=== PATIENT | female | born 1965 | race Caucasian/White ===

== ENCOUNTER 2017-04-18 06:50 | Emergency (ER) | payer BC ==
[~2017-04-18] VITALS: Ht 170.2 cm; Wt 60.0 kg
[~2017-04-18 06:50] MED LIST: ALBU6.7H INH; ASPI-515 PO; FLUT1DIS3 INH; GUAI237S4 PO; LINE600T37 PO; MONT10TA6 NG; PRED20TA PO; SIMV20TA PO
[2017-04-18] MEDS ORDERED: KETOROLAC 30 MG/1 ML ONE (07:05)
[2017-04-18] MEDS ORDERED: HYDROmorphone 1 MG/ML, 1ML ONE ×2 (07:05→08:10)
[2017-04-18] MEDS ORDERED: ONDANSETRON 2MG/ML, 2ML ONE (07:06)
[2017-04-18] MEDS: HYDROmorphone 1 MG/ML, 1ML IVPush PRN ×2 (07:12→08:20)
[2017-04-18 07:23] LABS: HEMATOCRIT 45.5 % (34.6-47.8); HEMOGLOBIN 15.8 g/dL (11.7-16.4); WHITE BLOOD COUNT 16.6 x10^3/uL (3.4-10)
[2017-04-18] MEDS ORDERED: SODIUM CHLORIDE FLUSH 10ML SYR IVF ONE (07:30)
[2017-04-18] MEDS ORDERED: ONDANSETRON 2MG/ML, 2ML IVPush ONE (07:30)
[2017-04-18] MEDS ORDERED: KETOROLAC 30 MG/1 ML IVPush ONE (07:30)
[2017-04-18 07:34] LABS: BLOOD UREA NITROGEN 18 mg/dL (7-18)
[2017-04-18 09:10] VITALS: BP 135/68
== END 2017-04-18 09:11 | disposition home or self-care (01) ==
LOC: ED 08:55
DX: N20.1 Calculus of ureter (principal); J45.909 Unspecified asthma, uncomplicated
CPT/HCPCS: 36415; 74176; 80048; 81001; 82040; 85025; 87077; 87086; 87186; 96374; 96375; 96376; 99285; J1170; J1885; J2405

== ENCOUNTER 2017-04-24 10:46 | Inpatient (IN) | payer BC ==
[~2017-04-24] VITALS: Ht 170.2 cm; Wt 68.1 kg
[2017-04-24] MEDS ORDERED: SODIUM CHLORIDE FLUSH 10ML SYR IVF ONE (11:30)
[2017-04-24] MEDS ORDERED: ONDANSETRON 2MG/ML, 2ML IVPush ONE (11:30)
[2017-04-24] MEDS ORDERED: SODIUM CHLORIDE 0.9% 1,000ML IVBOLUS ONE (11:30)
[2017-04-24 11:55] LABS: BLOOD UREA NITROGEN 33 mg/dL (7-18)
[2017-04-24] MEDS ORDERED: KETOROLAC 30 MG/1 ML ONE (11:56)
[2017-04-24] MEDS ORDERED: ONDANSETRON 2MG/ML, 2ML ONE (11:57)
[2017-04-24] MEDS ORDERED: KETOROLAC 30 MG/1 ML IVPush ONE (12:00)
[2017-04-24 12:05] LABS: HEMATOCRIT 38.8 % (34.6-47.8); HEMOGLOBIN 13.5 g/dL (11.7-16.4); WHITE BLOOD COUNT 15.9 x10^3/uL (3.4-10)
[2017-04-24 12:07] LABS: DIFF TOTAL CELLS COUNTED 100 CELL DIFF
[2017-04-24 12:10] LABS: VERIFY COUNTS? YES
[2017-04-24 12:11] LABS: LARGE PLATELETS 1+
[2017-04-24] MEDS ORDERED: SODIUM CHLORIDE 0.9%, 500ML IVBOLUS ONE (13:30)
[2017-04-24] MEDS ORDERED: PIPERACILLIN/TAZO/PMX 3.375GM 50 ML IV ONE (13:30)
[2017-04-24] MEDS ORDERED: PIPERACILLIN/TAZO/PMX 3.375GM 50 ML ONE (13:37)
[2017-04-24] MEDS ORDERED: HYDROcodone/APAP 5/325 TABLET ONE (13:46)
[2017-04-24] MEDS ORDERED: HYDROcodone/APAP 5/325 TABLET PO PRN (14:00)
[2017-04-24] MEDS ORDERED: BISACODYL 10 MG SUPP PR PRN (14:00)
[2017-04-24] MEDS ORDERED: morphine SULFATE 10 MG/ML, 1ML IVPush PRN (14:00)
[2017-04-24] MEDS ORDERED: HYDROcodone/APAP 5/325 TABLET PO ONE (14:00)
[2017-04-24] MEDS ORDERED: ACETAMINOPHEN 325 MG TABLET PO PRN (14:00)
[2017-04-24] MEDS ORDERED: ENALAPRILAT 1.25 MG/ML, 2ML IVPush PRN (14:00)
[2017-04-24] MEDS ORDERED: ONDANSETRON ODT 4 MG PO PRN (14:00)
[2017-04-24] MEDS ORDERED: BUDE10.2 INH (16:52)
[2017-04-24] MEDS: NS + 20MEQ KCL 1,000 ML IV SCH (19:39)
[2017-04-24 20:16] VITALS: BP 130/78
[2017-04-24] MEDS: MONTELUKAST 10 MG TABLET PO SCH (22:52)
[2017-04-24] MEDS: DOCUSATE 100 MG CAPSULE PO PRN (23:31)
[2017-04-25 00:47] VITALS: BP 121/70
[2017-04-25] MEDS: NS + 20MEQ KCL 1,000 ML IV SCH ×2 (04:52→17:59)
[2017-04-25 05:47] LABS: BLOOD UREA NITROGEN 27 mg/dL (7-18)
[2017-04-25 06:28] LABS: HEMATOCRIT 34.4 % (34.6-47.8); HEMOGLOBIN 11.7 g/dL (11.7-16.4); WHITE BLOOD COUNT 13.8 x10^3/uL (3.4-10)
[2017-04-25] MEDS: FLUTICASONE/VILANTEROL 100-25MCG/INH INH SCH (07:46)
[2017-04-25] MEDS: SENNA/DOCUSATE TABLET PO SCH (07:50)
[2017-04-25 08:59] VITALS: BP 131/77
[2017-04-25] MEDS: LEVOFLOXACIN/PMX 750MG/150ML 150 ML IV SCH (10:52)
[2017-04-25 12:45] VITALS: BP 139/86
[2017-04-25] MEDS: ONDANSETRON 2MG/ML, 2ML IVPush PRN ×2 (12:51→19:49)
[2017-04-25 19:08] VITALS: BP 143/73
[2017-04-25] MEDS: DOCUSATE 100 MG CAPSULE PO PRN (19:49)
[2017-04-25] MEDS: MONTELUKAST 10 MG TABLET PO SCH (19:49)
[2017-04-26 00:23] VITALS: BP 154/78
[2017-04-26] MEDS: NS + 20MEQ KCL 1,000 ML IV SCH ×2 (04:09→13:41)
[2017-04-26 06:02] LABS: HEMATOCRIT 35.2 % (34.6-47.8); HEMOGLOBIN 12.1 g/dL (11.7-16.4); WHITE BLOOD COUNT 14.1 x10^3/uL (3.4-10)
[2017-04-26 06:16] LABS: BLOOD UREA NITROGEN 15 mg/dL (7-18)
[2017-04-26 08:00] VITALS: BP 152/79
[2017-04-26] MEDS: SENNA/DOCUSATE TABLET PO SCH (08:47)
[2017-04-26] MEDS: FLUTICASONE/VILANTEROL 100-25MCG/INH INH SCH (08:47)
[2017-04-26 13:38] VITALS: BP 144/75
[2017-04-26 13:45] VITALS: BP 144/75
[2017-04-26 19:04] VITALS: BP 150/79
[2017-04-26] MEDS: ONDANSETRON 2MG/ML, 2ML IVPush PRN (20:04)
[2017-04-26] MEDS: MONTELUKAST 10 MG TABLET PO SCH (23:16)
[2017-04-27 00:51] VITALS: BP 141/72
[2017-04-27] MEDS: NS + 20MEQ KCL 1,000 ML IV SCH ×2 (00:58→10:28)
[2017-04-27 05:28] LABS: BLOOD UREA NITROGEN 15 mg/dL (7-18)
[2017-04-27 05:32] LABS: HEMATOCRIT 34.5 % (34.6-47.8); WHITE BLOOD COUNT 12.3 x10^3/uL (3.4-10)
[2017-04-27 07:25] VITALS: BP 142/77
[2017-04-27] MEDS ORDERED: LEVO500T47 PO (07:42)
[2017-04-27] MEDS ORDERED: AMLO2.5T2 PO (07:42)
[2017-04-27] MEDS: FLUTICASONE/VILANTEROL 100-25MCG/INH INH SCH (09:00)
[2017-04-27] MEDS: SENNA/DOCUSATE TABLET PO SCH (09:00)
[2017-04-27 09:23] LABS: PATH.CAST-FLAG NOT PRESENT; SPERM-FLAG NOT PRESENT; XTAL-FLAG NOT PRESENT; YLC-FLAG NOT PRESENT
[2017-04-27 09:34] LABS: SRC-FLAG NOT PRESENT
[2017-04-27] MEDS: LEVOFLOXACIN/PMX 750MG/150ML 150 ML IV SCH (10:26)
[2017-04-27 11:02] LABS: RAPID INFLUENZA A Negative (Negative); RAPID INFLUENZA B Negative (Negative)
[2017-04-27 12:54] VITALS: BP 144/86
== END 2017-04-27 14:15 | disposition home or self-care (01) | DRG 690 ==
LOC: ED 13:09 → INTOOBSV 13:42 → EDIP 13:42 → 4NOR 18:19 → OBSVTOIN 04-26 09:06
PROVIDERS: ADMIT Hospitalist; ATTEND Hospitalist
DX: N12 Tubulo-interstitial nephritis, not specified as acute or chronic (principal); N17.9 Acute kidney failure, unspecified; E86.0 Dehydration; E87.6 Hypokalemia; F17.210 Nicotine dependence, cigarettes, uncomplicated; J45.909 Unspecified asthma, uncomplicated; N20.0 Calculus of kidney; Z86.73 Personal history of transient ischemic attack (TIA), and cerebral infarction without residual deficits
CPT/HCPCS: 36415; 74000; 76770; 80048; 81001; 82040; 83605; 83735; 84100; 85025; 87040; 87077; 87086; 87186; 87400; 96361; 96374; 96375; G0378; J1885; J1956; J2405; J2543; J3480; J7030; J7040